=== PATIENT | male | born 1970 | race American Indian/Alaskan Native ===

== ENCOUNTER 2018-10-23 14:41 | Emergency (ER) | payer BC ==
--- NOTE | 2018-10-23 14:59 | Emergency Department Report ---
Blank Doc - Documentation Documentation: This is a 48-year-old male that presents with shortness of breathe, left sided chest pain with left arm pain x5 weeks. Patient also stated has some blurry vision intermittent. Patient also stated has some URI symptoms x1 week. Patient also stated has some weakness. Patient stated was seen in [place] for same. PMH: None This initial assessment diagnostic orders/clinical plan/treatment(s) is/are subject to change based on patient's health status, clinical progression and re- assessment by fellow clinical providers in the ED. Further treatment and workup at subsequent clinical providers discretion. Patient/guardians urged not to elope from ED s their condition may be serious if not clinically assessed and managed. Initial orders include: 1-Patient sent to [facility] for further evaluation and treatment 2- Labs 3- UA 4- CXR
--- NOTE | 2018-10-23 15:13 | Emergency Department Report ---
ED General Adult HPI - General Chief complaint: Dyspnea/Respdistress Stated complaint: SOB/FLU SYMPTOMS Time Seen by Provider: 10/23/18 14:55 Source: patient Mode of arrival: Ambulatory Limitations: No Limitations - History of Present Illness Initial comments: 48-year-old male with no past medical history presents with the complaint of shortness of breath. Patient states he's had a racing heart as well as over this time period. Patient states that on Sunday he had a dry cough and on Sunday he had Tylenol as well as a headache. They state he had a fever of 102 which later resolved on Sunday. Patient states that he was having a hard time catching his breath as well. Patient currently denies any chest pain. Patient complains of pain in his left upper extremity but denies any trauma. Patient states he was evaluated a hospital in [place] in September 2018 and x- rays which were negative. Patient denies any recent trauma since then. Patient denies any numbness to the extremity. Patient denies any focal weakness or slurred speech. Patient states that when he internally rotates his left arm he has pain. Patient states he feels as if his arm is contracted. Patient however is able to lift both extremities up above his head without difficulty. Patient states that the ER they told him if his symptoms were to worsen to go to an ER a nd have an MRI of his left upper extremity. - Related Data Previous Rx's Medication Instructions Recorded Last Taken Type Azithromycin 250 mg PO DAILY #6 tablet 10/23/18 Unknown Rx Cyclobenzaprine [Flexeril] 10 mg PO TID PRN #20 tablet 10/23/18 Unknown Rx traMADol [Ultram] 50 mg PO Q6HR PRN #20 tablet 10/23/18 Unknown Rx Allergies Allergy/AdvReac Type Severity Reaction Status Date / Time No Known Allergies Allergy Unverified 10/23/18 14:51 ED Review of Systems ROS: Stated complaint: SOB/FLU SYMPTOMS Other details as noted in HPI Constitutional: denies: chills, fever Eyes: denies: eye pain, eye discharge, vision change ENT: denies: ear pain, throat pain Respiratory: SOB at rest. denies: cough, shortness of breath, wheezing Cardiovascular: palpitations. denies: chest pain Endocrine: no symptoms reported Gastrointestinal: denies: abdominal pain, nausea, diarrhea Genitourinary: denies: urgency, dysuria Musculoskeletal: other (musculoskeletal pain). denies: back pain, joint swelling, arthralgia Skin: denies: rash, lesions Neurological: weakness. denies: headache, paresthesias Psychiatric: denies: anxiety, depression Hematological/Lymphatic: denies: easy bleeding, easy bruising ED Past Medical Hx - Past Medical History Previous Medical History?: No - Surgical History Past Surgical History?: No - Social History Smoking Status: Never Smoker Substance Use Type: None - Medications Home Medications: Home Medications Medication Instructions Recorded Confirmed Last Taken Type Azithromycin 250 mg PO DAILY #6 tablet 10/23/18 Unknown Rx Cyclobenzaprine [Flexeril] 10 mg PO TID PRN #20 tablet 10/23/18 Unknown Rx traMADol [Ultram] 50 mg PO Q6HR PRN #20 tablet 10/23/18 Unknown Rx ED Physical Exam - General Limitations: No Limitations General appearance: alert, in no apparent distress, other (awake) - Head Head exam: Present: atraumatic, normocephalic - Eye Eye exam: Present: normal appearance - ENT ENT exam: Present: mucous membranes moist - Neck Neck exam: Present: normal inspection - Respiratory Respiratory exam: Present: normal lung sounds bilaterally. Absent: respiratory distress - Cardiovascular Cardiovascular Exam: Present: regular rate, normal rhythm. Absent: systolic murmur, diastolic murmur, rubs, gallop - GI/Abdominal GI/Abdominal exam: Present: soft, normal bowel sounds - Rectal Rectal exam: Present: deferred - Extremities Exam Extremities exam: Present: normal inspection, other (no swelling of left upper extremity; no erythema; no ecchymosis; patient has pain when internally rotating the left upper extremity. ). Absent: calf tenderness - Back Exam Back exam: Present: normal inspection - Neurological Exam Neurological exam: Present: alert, oriented X3 - Psychiatric Psychiatric exam: Present: normal affect, normal mood - Skin Skin exam: Present: warm, dry, intact, normal color. Absent: rash ED Course Vital Signs 10/23/18 10/23/18 10/23/18 14:46 15:34 15:35 Temperature 97.7 F Pulse Rate 80 69 Respiratory 18 Rate Blood Pressure 118/80 O2 Sat by Pulse 99 100 Oximetry 10/23/18 10/23/18 10/23/18 15:49 16:02 16:05 Temperature Pulse Rate 76 71 Respiratory 12 18 19 Rate Blood Pressure 112/72 O2 Sat by Pulse 98 95 Oximetry 10/23/18 10/23/18 10/23/18 16:16 17:18 17:30 Temperature Pulse Rate 65 69 71 Respiratory 17 13 18 Rate Blood Pressure 109/71 109/71 109/71 O2 Sat by Pulse 95 Oximetry 10/23/18 10/23/18 10/23/18 17:46 18:00 18:16 Temperature Pulse Rate 65 70 74 Respiratory 17 14 19 Rate Blood Pressure 109/71 116/68 116/68 O2 Sat by Pulse Oximetry 10/23/18 10/23/18 18:30 18:46 Temperature Pulse Rate 68 64 Respiratory 15 20 Rate Blood Pressure 116/68 116/68 O2 Sat by Pulse Oximetry ED Medical Decision Making - Lab Data Result diagrams: 10/23/18 15:13 10/23/18 15:13 - EKG Data Rate: normal - EKG Data When compared to previous EKG there are: no significant change Interpretation: no acute changes - Medical Decision Making Patient has a normal d-dimer and normal chest x-ray. Patient also has a normal troponin as well. Patient currently pending MRI of upper extremity. - Differential Diagnosis STEMI; NSTEMI; Arrythmia; electrolyte abnormality; Anemia Critical care attestation.: If time is entered above; I have spent that time in minutes in the direct care of this critically ill patient, excluding procedure time. ED Disposition Clinical Impression: Epicondylitis, Dyspnea, Bronchitis Disposition: -01 TO HOME OR SELFCARE Is pt being admited?: No Condition: Stable Instructions: Chronic Bronchitis (ED) Prescriptions: Azithromycin 250 mg PO DAILY #6 tablet Cyclobenzaprine [Flexeril] 10 mg PO TID PRN #20 tablet PRN Reason: Muscle Spasm traMADol [Ultram] 50 mg PO Q6HR PRN #20 tablet PRN Reason: Pain [facility] [Primary Care Provider] - 3-5 Days ROJAS TAPIA MD [Staff Physician] - 3-5 Days Print Language: PERSIAN
[2018-10-23] MEDS ORDERED: TORADOL IV ONE (15:35)
[2018-10-23] MEDS ORDERED: NACL 0.9% 1000 ML 1,000 ML IV ONE (15:36)
[2018-10-23 15:42] LABS: Basophils % (Auto) 0.7 % (0.0-1.8); Eosinophils # (Auto) 0.1 K/mm3 (0.0-0.4); Eosinophils % (Auto) 1.9 % (0.0-4.3); Hematocrit 43.3 % (35.5-45.6); Hemoglobin 14.8 gm/dl (11.8-15.2); Lymphocytes # (Auto) 1.8 K/mm3 (1.2-5.4); Mean Corpuscular HGB Conc 34 % (32-34); Mean Corpuscular Volume 87 fl (84-94); Monocytes # (Auto) 0.3 K/mm3 (0.0-0.8); Monocytes % (Auto) 6.1 % (0.0-7.3); Platelet Count 145 K/mm3 (140-440); Red Blood Count 4.99 M/mm3 (3.65-5.03); Red Cell Distribution Width 12.8 % (13.2-15.2)
[2018-10-23 15:51] LABS: INR 0.85 (0.87-1.13)
[2018-10-23 16:02] LABS: Alanine Aminotransferase 40 units/L (7-56); Albumin 4.4 g/dL (3.9-5); BUN/Creatinine Ratio 14; Blood Urea Nitrogen 10 mg/dL (9-20); Calcium 8.9 mg/dL (8.4-10.2); Hemolysis Index 33
[2018-10-23 16:25] LABS: Bilirubin,Urine NEG (Negative); Blood,Urine NEG (Negative); Color,Urine Yellow (Yellow); Mucus,Urine FEW /HPF; Protein,Urine <15 mg/dL mg/dL (Negative); Urobilinogen,Urine < 2.0 mg/dL (<2.0); WBC,Urine < 1.0 /HPF (0.0-6.0)
--- NOTE | 2018-10-23 16:51 | XRay Report ---
FINAL REPORT EXAM: XR CHEST ROUTINE 2V HISTORY: Chest Pain TECHNIQUE: Two view chest PA and lateral PRIORS: None. FINDINGS: Cardiac and mediastinal contours are unremarkable. No focal pulmonary infiltrate is identified. No pleural fluid collection seen. Pulmonary vasculature is unremarkable. IMPRESSION: Negative two-view chest
--- NOTE | 2018-10-23 20:24 | Magnetic Resonance Report ---
FINAL REPORT EXAM: MR UE JOINT LT WO CON HISTORY: Pain TECHNIQUE: MRI was performed of the left elbow using the following pulse sequences: Axial: T1, fat suppressed T2 Coronal: T1, fat suppressed T2 Sagittal: STIR, fat suppressed T2 PRIORS: None. FINDINGS: Bones and bone marrow: There is normal osseous marrow signal. Joints spaces: The joint spaces are normal. The visualized articular cartilage and subchondral marro w are preserved. There is a very small joint effusion. Ligaments: Examination of the medial and lateral ligaments reveals no abnormalities. Tendons: Examination of the tendons reveals no evidence for tendinosis or tear. Soft Tissues: The soft tissues are unremarkable. IMPRESSION: Very small joint effusion. Otherwise, normal MRI of the left elbow.
[2018-10-23 21:12] VITALS: BP 116/79
== END 2018-10-23 21:11 | disposition home or self-care (01) ==
LOC: ED 14:41
DX: J40 Bronchitis, not specified as acute or chronic (principal); M77.12 Lateral epicondylitis, left elbow
CPT/HCPCS: 36415; 71046; 73221; 80053; 81001; 84484; 85025; 85379; 85610; 85730; 93005; 93010; 96374; 99285; J1885; J7030